=== PATIENT | female | born 1955 | race American Indian/Alaskan Native ===

== ENCOUNTER 2017-07-14 19:51 | Emergency (ER) | payer SELFPAY ==
[2017-07-14 20:40] LABS: Basophils % (Auto) 1.4 % (0.0-1.8); Eosinophils % (Auto) 1.5 % (0.0-4.3); Hematocrit 38.7 % (30.3-42.9); Hemoglobin 12.6 gm/dl (10.1-14.3); Mean Corpuscular HGB Conc 33 % (30-34); Mean Corpuscular Volume 77 fl (79-97); Platelet Count 236 K/mm3 (140-440); Red Cell Distribution Width 15.5 % (13.2-15.2); White Blood Count 8.8 K/mm3 (4.5-11.0)
[2017-07-14 20:45] LABS: Mean Corpuscular Hemoglobin 25 pg (28-32)
[2017-07-14 21:02] LABS: Anion Gap 18 mmol/L; Blood Urea Nitrogen 14 mg/dL (7-17); Calcium 9.1 mg/dL (8.4-10.2); Carbon Dioxide 24 mmol/L (22-30); Chloride 106.5 mmol/L (98-107); Glucose 79 mg/dL (65-100); Potassium 4.5 mmol/L (3.6-5.0); Sodium 144 mmol/L (137-145)
--- NOTE | 2017-07-15 01:22 | Emergency Department Report ---
ED Chest Pain HPI - General Chief Complaint: Chest Pain Stated Complaint: CHEST PAIN Time Seen by Provider: 07/15/17 00:58 Source: patient, old records reviewed Mode of arrival: Ambulatory Limitations: No Limitations - History of Present Illness Initial Comments: 62-year-old female with a past medical history of CAD with stent placement in 2014 and hypertension presents to Hospital complaints of left-sided chest pain since 3 PM. Pain is aching, intermittent, no aggravating or alleviating factors reported last for several minutes at a time. Pain is rated as moderate in intensity. She has been compliant with her medications. Patient has a negative stress test here 01/2016. The patient now lives in [place] and is here because of hurrican [place]. She traveled here 2 days ago. No complaints of calf tenderness, leg edema, leg asymmetry, pleuritic chest pain, shortness of breath, nausea, vomiting, or diaphoresis. With her previous PR 2014 she reported her main symptom as back pain. Patient is here with her mother who is also a patient and signed in to be evaluated as well - Related Data Home Medications Medication Instructions Recorded Confirmed Last Taken Lisinopril [Zestril TAB] 40 mg PO QDAY 07/14/17 07/14/17 07/14/17 Allergies Allergy/AdvReac Type Severity Reaction Status Date / Time No Known Allergies Allergy Verified 01/10/16 23:32 Heart Score - HEART Score History: Slightly suspicious EKG: Normal Age: 45-65 Risk factors: > 3 risk factors or hx of atherosclerotic disease Troponin: < normal limit HEART Score: 3 ED Review of Systems ROS: Stated complaint: CHEST PAIN Other details as noted in HPI Comment: All other systems reviewed and negative Other: Constitutional: No fevers chills Eyes: No eye pain visual changes ENT: No ear pain or throat pain Neck: Denies pain Respiratory: Denies cough wheezing shortness of breath Cardiovascular: Denies palpitations, syncope GI: Denies abdominal pain, nausea, vomiting, diarrhea : Denies dysuria, urinary frequency, or urgency Musculoskeletal: Denies back pain, joint swelling Skin: Denies rash, lesions, erythema Neurologic: Denies headache, numbness, weakness Psychiatric: Denies suicidal ideation, hallucinations ED Past Medical Hx - Past Medical History Previous Medical History?: Yes Hx Hypertension: Yes Hx Heart Attack/AMI: Yes (2014) - Surgical History Past Surgical History?: Yes Additional Surgical History: cardiac stent - Social History Smoking Status: Never Smoker Substance Use Type: Prescribed - Medications Home Medications: Home Medications Medication Instructions Recorded Confirmed Last Taken Type Lisinopril [Zestril TAB] 40 mg PO QDAY 07/14/17 07/14/17 07/14/17 History ED Physical Exam - General Limitations: No Limitations - Other Other exam information: General: No limitations, patient is alert in no acute distress Head exam: Atraumatic, normocephalic Eyes exam: Normal appearance ENT: Moist mucous membrane, normal oropharynx Neck exam: Normal inspection, full range of motion, no meningismus nontender Respiratory exam: Clear to auscultation bilateral, no wheezes, rales, crackles Cardiovascular: Normal rate and rhythm, normal heart sounds. Chest wall nontender Abdomen: Soft, nondistended, and nontender, with normal bowel sounds, no rebound, or guarding Extremity: Full range of motion normal inspection no deformity, no calf tenderness or edema Back: Normal Inspection, full range of motion, no tenderness Neurologic: Alert, oriented x3, cranial nerves intact, no motor or sensory deficit Psychiatric: normal affect, normal mood Skin: Warm, dry, intact ED Course Vital Signs 07/14/17 07/15/17 07/15/17 20:00 00:42 00:45 Temperature 98.5 F Pulse Rate 72 64 Respiratory 18 12 11 L Rate Blood Pressure 162/93 133/67 O2 Sat by Pulse 100 99 Oximetry 07/15/17 07/15/17 07/15/17 01:01 01:15 01:31 Temperature Pulse Rate 65 67 57 L Respiratory 18 20 19 Rate Blood Pressure 122/77 122/77 170/83 O2 Sat by Pulse 99 100 100 Oximetry - Reevaluation(s) Reevaluation #1: 07/15/17 01:23 Patient informed that I plan to admit her to the hospital. She states she cannot stay because her and her family are currently into her car and she has a teenager in a younger child in the car currently waiting for her to be discharged. Her mother who is also a patient that I am seeing will be discharged as well. JUSTIN score - Justin Score Age > 65: (0) No Aspirin use within the Past 7 Days: (1) Yes 3 or more CAD Risk Factors: (1) Yes 2 or more Angina events in past 24 hrs: (1) Yes Known CAD with more than 50% Stenosis: (0) No (hx in past) Elevated Cardiac Markers: (0) No ST Deviation Greater than 0.5mm: (0) No JUSTIN Score: 3 ED Medical Decision Making - Lab Data Result diagrams: 07/14/17 20:14 07/14/17 20:14 Lab Results 07/14/17 07/14/17 07/14/17 Range/Units 20:14 20:14 23:48 WBC 8.8 (4.5-11.0) K/mm3 RBC 5.00 (3.65-5.03) M/mm3 Hgb 12.6 (10.1-14.3) gm/dl Hct 38.7 (30.3-42.9) % MCV 77 L (79-97) fl MCH 25 L (28-32) pg MCHC 33 (30-34) % RDW 15.5 H (13.2-15.2) % Plt Count 236 (140-440) K/mm3 Lymph % (Auto) 37.7 H (13.4-35.0) % [place] % (Auto) 8.6 H (0.0-7.3) % Eos % (Auto) 1.5 (0.0-4.3) % Baso % (Auto) 1.4 (0.0-1.8) % Lymph # 3.3 (1.2-5.4) K/mm3 [place] # 0.8 (0.0-0.8) K/mm3 Eos # 0.1 (0.0-0.4) K/mm3 Baso # 0.1 (0.0-0.1) K/mm3 Seg Neutrophils % 50.8 (40.0-70.0) % Seg Neutrophils # 4.4 (1.8-7.7) K/mm3 Sodium 144 (137-145) mmol/L Potassium 4.5 (3.6-5.0) mmol/L Chloride 106.5 (98-107) mmol/L Carbon Dioxide 24 (22-30) mmol/L Anion Gap 18 mmol/L BUN 14 (7-17) mg/dL Creatinine 0.8 (0.7-1.2) mg/dL Estimated GFR > 60 ml/min BUN/Creatinine Ratio 17.50 % Glucose 79 (65-100) mg/dL Calcium 9.1 (8.4-10.2) mg/dL Troponin T < 0.010 < 0.010 (0.00-0.029) ng/mL - EKG Data -: EKG Interpreted by Me (nsra rate 78, premature atrial complexes, no stemi) - EKG Data When compared to previous EKG there are: no significant change (04/11/16) - Medical Decision Making Patient had any symptoms of PE or DVT. Cardiac enzymes negative 2. EKG without signs of STEMI or ischemia. Admission recommended based on patient's significant cardiac history. Patient states she cannot stay and will sign out AMA. - Differential Diagnosis atypical chest pain, costochondritis, PR, PE Critical Care Time: No Critical care attestation.: If time is entered above; I have spent that time in minutes in the direct care of this critically ill patient, excluding procedure time. ED Disposition Clinical Impression: Chest pain, Hx of heart artery stent Disposition: OP ADMIT IP TO THIS HOSP Is pt being admited?: No Does the pt Need Aspirin: No Condition: Stable Instructions: Chest Pain (ED) Additional Instructions: You are signing out AGAINST MEDICAL ADVICE since admission was recommended giving your history of significant cardiac disease and stent. Follow with your primary care doctor and/or business objects architect within next 2- 3 days. Return if symptoms worsen. Referrals: BARI CHRISTINA MD [Staff Physician] - 2-3 Days (cardiology ) [facility] [Provider Group] - 2-3 Days [facility], [Primary Care Provider] - 3-5 Days Forms: AMA Form Time of Disposition: 01:46
[2017-07-15 02:17] VITALS: BP 160/82
== END 2017-07-15 02:17 | disposition admitted as inpatient to this hospital (09) ==
LOC: ED 19:51
DX: R07.89 Other chest pain (principal); I10 Essential (primary) hypertension; I25.2 Old myocardial infarction; Z98.890 Other specified postprocedural states
CPT/HCPCS: 36415; 80048; 84484; 85025; 93005; 93010; 99284

== ENCOUNTER 2017-07-16 10:20 | Inpatient (IN) | payer OTHER ==
--- NOTE | 2017-07-16 11:31 | Emergency Department Report ---
ED Chest Pain HPI - General Chief Complaint: Chest Pain Stated Complaint: CHEST PAIN Time Seen by Provider: 07/16/17 11:20 Source: patient Mode of arrival: Ambulatory Limitations: No Limitations - History of Present Illness Initial Comments: 62 years old female history of coronary artery disease had a stent in 2014 scalpel was left sided chest pain and pressure in nature admitted to the left shoulder onto the neck. Patient denied any nausea or vomiting no shortness of breath no cough MD Complaint: chest pain -: Last night Onset: during rest Pain Location: left chest Pain Radiation: LUE, back, neck Severity scale (0 -10): 7 Quality: tightness re: denies: nausea, vomting Treatments Prior to Arrival: none - Related Data Home Medications Medication Instructions Recorded Confirmed Last Taken Lisinopril [Zestril TAB] 40 mg PO QDAY 07/14/17 07/14/17 07/14/17 Allergies Allergy/AdvReac Type Severity Reaction Status Date / Time No Known Allergies Allergy Verified 01/10/16 23:32 Heart Score - HEART Score History: Moderately suspicious EKG: Non-specific Age: 45-65 Risk factors: > 3 risk factors or hx of atherosclerotic disease Troponin: < normal limit HEART Score: 5 - Critical Actions Critical Actions: 4-6 pts:12-16.6% risk of adverse cardiac event. Should be admitted ED Review of Systems ROS: Stated complaint: CHEST PAIN Other details as noted in HPI Comment: All other systems reviewed and negative Constitutional: denies: chills, fever Respiratory: denies: cough, orthopnea, shortness of breath, SOB with exertion Cardiovascular: chest pain. denies: palpitations Endocrine: denies: intolerance to cold Gastrointestinal: denies: abdominal pain, nausea, vomiting, diarrhea Neurological: denies: headache, weakness ED Past Medical Hx - Past Medical History Hx Hypertension: Yes Hx Heart Attack/AMI: Yes (2014 11 cardiac stent) - Surgical History Additional Surgical History: cardiac stent, tubal ligation - Social History Smoking Status: Never Smoker Substance Use Type: None - Medications Home Medications: Home Medications Medication Instructions Recorded Confirmed Last Taken Type Lisinopril [Zestril TAB] 40 mg PO QDAY 07/14/17 07/14/17 07/14/17 History ED Physical Exam - General Limitations: No Limitations General appearance: alert, in no apparent distress - Head Head exam: Present: atraumatic - Eye Eye exam: Present: normal appearance - ENT ENT exam: Present: normal exam - Neck Neck exam: Present: normal inspection - Respiratory Respiratory exam: Present: normal lung sounds bilaterally. Absent: wheezes, rales, rhonchi, stridor, chest wall tenderness, accessory muscle use, decreased breath sounds, prolonged expiratory - Cardiovascular Cardiovascular Exam: Present: regular rate, normal rhythm, normal heart sounds - GI/Abdominal GI/Abdominal exam: Present: soft, normal bowel sounds. Absent: distended, tenderness, guarding, rebound, rigid, mass, bruit, pulsatile mass - Extremities Exam Extremities exam: Present: normal inspection - Back Exam Back exam: Present: normal inspection. Absent: CVA tenderness (R), CVA tenderness (L), muscle spasm - Neurological Exam Neurological exam: Present: alert, oriented X3, CN II-XII intact, normal gait - Skin Skin exam: Present: warm, normal color ED Course Vital Signs 07/16/17 07/16/17 10:53 11:33 Temperature 97.7 F 98.1 F Pulse Rate 91 H 70 Respiratory 18 20 Rate Blood Pressure 180/85 Blood Pressure 164/73 [Left] O2 Sat by Pulse 100 99 Oximetry - Reevaluation(s) Reevaluation #1: 07/16/17 12:[address] Morrissey present the patient to him, he agreed to admit the patient to his service. JUSTIN score - Justin Score Age > 65: (0) No Aspirin use within the Past 7 Days: (1) Yes 3 or more CAD Risk Factors: (1) Yes 2 or more Angina events in past 24 hrs: (1) Yes Known CAD with more than 50% Stenosis: (0) No (hx in past) Elevated Cardiac Markers: (0) No ST Deviation Greater than 0.5mm: (0) No JUSTIN Score: 3 ED Medical Decision Making - Lab Data Result diagrams: 07/16/17 11:08 07/16/17 11:08 Critical care attestation.: If time is entered above; I have spent that time in minutes in the direct care of this critically ill patient, excluding procedure time. ED Disposition Clinical Impression: Chest pain, Coronary artery disease Disposition: OP ADMIT IP TO THIS HOSP Is pt being admited?: Yes Does the pt Need Aspirin: Yes (given) Condition: Stable Instructions: Chest Pain (ED) Referrals: PRIMARY CARE,MD [Primary Care Provider] - 3-5 Days
[2017-07-16 11:34] LABS: Basophils % (Auto) 0.9 % (0.0-1.8); Hematocrit 39.2 % (30.3-42.9); Hemoglobin 12.2 gm/dl (10.1-14.3); Mean Corpuscular HGB Conc 31 % (30-34); Mean Corpuscular Volume 79 fl (79-97); Platelet Count 216 K/mm3 (140-440); Red Blood Count 4.99 M/mm3 (3.65-5.03); Red Cell Distribution Width 15.6 % (13.2-15.2); White Blood Count 6.9 K/mm3 (4.5-11.0)
[2017-07-16 11:38] LABS: Mean Corpuscular Hemoglobin 25 pg (28-32)
[2017-07-16 11:40] LABS: Anion Gap 17 mmol/L; Blood Urea Nitrogen 14 mg/dL (7-17); Calcium 9.1 mg/dL (8.4-10.2); Carbon Dioxide 25 mmol/L (22-30); Chloride 105.5 mmol/L (98-107); Glucose 105 mg/dL (65-100); Potassium 4.2 mmol/L (3.6-5.0); Sodium 143 mmol/L (137-145)
--- NOTE | 2017-07-16 11:47 | XRay Report ---
Single view chest: Compared to 04/11/16. History: Chest pain. Findings: Cardiomegaly. Trachea midline. Mild pulmonary venous congestion. No consolidation or pleural effusion. Impression: Cardiomegaly with mild pulmonary venous congestion.
[2017-07-16] MEDS ORDERED: BABY ASPIRIN PO ONE (12:27)
--- NOTE | 2017-07-16 20:15 | History and Physical Report ---
History of Present Illness Date of examination: 07/16/17 Date of admission: 07/16/17 12:28 Chief complaint: Chesrt pain for 1 day History of present illness: History of Present Illness 62 years old female history of coronary artery disease had a stent in 2014 scalpel was left sided chest pain and pressure in nature admitted to the left shoulder onto the neck. Patient denied any nausea or vomiting no shortness of breath no cough MD Complaint: chest pain -: Last night Onset: during rest Pain Location: left chest Pain Radiation: LUE, back, neck Severity scale (0 -10): 7 Quality: tightness re: denies: nausea, vomting Treatments Prior to Arrival: none - Related Data Home Medications Medication Instructions Recorded Confirmed Last Taken Lisinopril [Zestril TAB] 40 mg PO QDAY 07/14/17 07/14/17 07/14/17 Allergies Allergy/AdvReac Type Severity Reaction Status Date / Time No Known Allergies Allergy Verified 01/10/16 23:32 - HEART Score History: Moderately suspicious EKG: Non-specific Age: 45-65 Risk factors: > 3 risk factors or hx of atherosclerotic disease Troponin: < normal limit HEART Score: 5 - Critical Actions Critical Actions: 4-6 pts:12-16.6% risk of adverse cardiac event. Should be admitted Review of Systems Stated complaint: CHEST PAIN Other details as noted in HPI Comment: All other systems reviewed and negative Constitutional: denies: chills, fever Respiratory: denies: cough, orthopnea, shortness of breath, SOB with exertion Cardiovascular: chest pain. denies: palpitations Endocrine: denies: intolerance to cold Gastrointestinal: denies: abdominal pain, nausea, vomiting, diarrhea Neurological: denies: headache, weakn - Past Medical History Hx Hypertension: Yes Hx Heart Attack/AMI: Yes (2014 11 cardiac stent) - Surgical History Additional Surgical History: cardiac stent, tubal ligation - Social History Smoking Status: Never Smoker Substance Use Type: None - Medications Home Medications: Home Medications Medication Instructions Recorded Confirmed Last Taken Type Lisinopril [Zestril TAB] 40 mg PO QDAY 07/14/17 07/14/17 07/14/17 History Medications and Allergies Allergies Allergy/AdvReac Type Severity Reaction Status Date / Time No Known Allergies Allergy Verified 01/10/16 23:32 Home Medications Medication Instructions Recorded Confirmed Last Taken Type Lisinopril [Zestril TAB] 40 mg PO QDAY 07/14/17 07/17/17 07/16/17 10:00 History Exam - Constitutional Vitals: Temp Pulse Resp BP Pulse Ox 98.2 F 98 H 20 165/78 98 07/16/17 16:18 07/16/17 16:50 07/16/17 16:50 07/16/17 16:18 07/16/17 16:50 General appearance: Present: no acute distress, well-nourished - EENT Eyes: Present: PERRL ENT: hearing intact, clear oral mucosa - Neck Neck: Present: supple, normal ROM - Respiratory Respiratory effort: normal Respiratory: bilateral: CTA - Cardiovascular Heart rate: 80 Rhythm: regular Heart Sounds: Present: S1 & S2. Absent: rub, click - Extremities Extremities: no ischemia, pulses intact, pulses symmetrical, No edema Peripheral Pulses: within normal limits - Abdominal General gastrointestinal: Present: soft, non-tender, non-distended, normal bowel sounds Female genitourinary: Present: normal - Integumentary Integumentary: Present: clear, warm, dry - Musculoskeletal Musculoskeletal: gait normal, strength equal bilaterally - Psychiatric Psychiatric: appropriate mood/affect, intact judgment & insight - Neurologic Neurologic: CNII-XII intact, moves all extremities - Allied Health Allied health notes reviewed: nursing, case management Results - Labs CBC & Chem 7: 07/17/17 05:29 07/17/17 05:29 Labs: Laboratory Last Values WBC 6.9 K/mm3 (4.5-11.0) 07/16/17 11:08 RBC 4.99 M/mm3 (3.65-5.03) 07/16/17 11:08 Hgb 12.2 gm/dl (10.1-14.3) 07/16/17 11:08 Hct 39.2 % (30.3-42.9) 07/16/17 11:08 MCV 79 fl (79-97) 07/16/17 11:08 MCH 25 pg (28-32) L 07/16/17 11:08 MCHC 31 % (30-34) 07/16/17 11:08 RDW 15.6 % (13.2-15.2) H 07/16/17 11:08 Plt Count 216 K/mm3 (140-440) 07/16/17 11:08 Lymph % (Auto) 35.0 % (13.4-35.0) 07/16/17 11:08 [place] % (Auto) 8.0 % (0.0-7.3) H 07/16/17 11:08 Eos % (Auto) 2.0 % (0.0-4.3) 07/16/17 11:08 Baso % (Auto) 0.9 % (0.0-1.8) 07/16/17 11:08 Lymph # 2.4 K/mm3 (1.2-5.4) 07/16/17 11:08 [place] # 0.6 K/mm3 (0.0-0.8) 07/16/17 11:08 Eos # 0.1 K/mm3 (0.0-0.4) 07/16/17 11:08 Baso # 0.1 K/mm3 (0.0-0.1) 07/16/17 11:08 Seg Neutrophils % 54.1 % (40.0-70.0) 07/16/17 11:08 Seg Neutrophils # 3.7 K/mm3 (1.8-7.7) 07/16/17 11:08 D-Dimer 254.49 ng/mlDDU (0-234) H 07/16/17 11:39 Sodium 143 mmol/L (137-145) 07/16/17 11:08 Potassium 4.2 mmol/L (3.6-5.0) 07/16/17 11:08 Chloride 105.5 mmol/L (98-107) 07/16/17 11:08 Carbon Dioxide 25 mmol/L (22-30) 07/16/17 11:08 Anion Gap 17 mmol/L 07/16/17 11:08 BUN 14 mg/dL (7-17) 07/16/17 11:08 Creatinine 0.7 mg/dL (0.7-1.2) 07/16/17 11:08 Estimated GFR > 60 ml/min 07/16/17 11:08 BUN/Creatinine Ratio 20.00 % 07/16/17 11:08 Glucose 105 mg/dL (65-100) H 07/16/17 11:08 Calcium 9.1 mg/dL (8.4-10.2) 07/16/17 11:08 Troponin T < 0.010 ng/mL (0.00-0.029) 07/16/17 16:40 NT-Pro-B Natriuret Pep 163.7 pg/mL (0-900) 07/16/17 11:39 Lipase 45 units/L (13-60) 07/16/17 11:39 Cardiac Enzymes 07/17/17 Range/Units 08:23 Total Creatine Kinase 182 H (30-135) units/L CK-MB (CK-2) 2.3 (0.0-4.0) ng/mL Troponin T < 0.010 (0.00-0.029) ng/mL - Imaging and Cardiology EKG: report reviewed (NSR non specific ST t wave changes) Assessment and Plan Advance Directives: Yes (Full code) VTE prophylaxis?: Chemical Plan of care discussed with patient/family: Yes - Patient Problems (1) Chest pain Current Visit: No Status: Acute Qualifiers: Chest pain type: C Ischemic chest pain type: I Plan to address problem: Serial CE's and Lexiscan in Am (2) Coronary artery disease Current Visit: Yes Status: Chronic Qualifiers: Coronary Disease-Associated Artery/Lesion type: C [place] vs. transplanted heart: N Associated angina: A Plan to address problem: For stress in AM Serial cardiac enzymes ASA 81 mg 2 qd (3) Hypertension Current Visit: No Status: Chronic Qualifiers: Hypertension type: essential hypertension Qualified Code(s): I10 - Essential (primary) hypertension Plan to address problem: cont Lisinopril 40 mg po qd (4) DVT prophylaxis Current Visit: Yes Status: Acute Plan to address problem: on lovenox
[2017-07-16] MEDS ORDERED: MILK OF MAGNESIA PO PRN (20:16)
[2017-07-16] MEDS ORDERED: AMBIEN PO PRN (20:16)
[2017-07-16] MEDS ORDERED: PERCOCET 5/325 PO PRN (20:16)
[2017-07-16] MEDS ORDERED: ZOFRAN IV PRN (20:16)
[2017-07-16] MEDS ORDERED: DULCOLAX PR PRN (20:16)
[2017-07-16] MEDS ORDERED: DILAUDID IV PRN (20:16)
[2017-07-16 21:16] LABS: Creatine Kinase MB 2.5 ng/mL (0.0-4.0)
[2017-07-16 21:17] LABS: Creatine Kinase 198 units/L (30-135)
[2017-07-16] MEDS: ZESTRIL PO SCH (21:30)
[2017-07-16] MEDS: PEPCID PO SCH (21:31)
--- NOTE | 2017-07-17 03:08 | Admit Criteria Form ---
Admission Criteria Documentation: CARDIOLOGY GRG Clinical Indications for Admission to Inpatient Care ([place]/check or initial the applicable condition/criteria) Hospital admission is needed for appropriate care of the patient because of ANY ONE of the following: [ ] I. Hemodynamic instability as indicated by ALL of the following (1)(2)(3) (4)(5)(6)(7)(8)(9)(10) [ ]a) Vital sign abnormality not readily corrected by appropriate treatment with 12-24 hours for ANY ONE: [ ]i) Hypotension that persists despite appropriate treatment (eg, volume repletion) [ ]ii) Tachycardiathat persists despite appropriate tx ( e.g., analgesia, fluids, sedation as indicated [ ]iii) Orthostatic vital sign changes that persists despite appropriate treatment (eg, volume repletion) [ ]b) Vital sign abnormailty that is severe indicated by ANY ONE of the following: [ ]i) Inadequate perfusion indicated by ANY ONE of the following: [ ] 1) Lactic acidosis (> 2 mmol/L) [ ] 2) New abnormal capillary refill (> 3 seconds) [ ] 3) Reduced urine output [ ] 4) New altered mental status [ ] 5) Myocardial Ischemia [ ] 6) Other metabolic acidosis (arterial pH <7.35 ) not otherwise explained. [ ]ii) Mean arterial pressure[A] less than 60 mm Hg [ ]iii) Mean arterial pressure[A] less than 70 mm Hg after 30 minutes of appropriate treatment (eg, fluid resuscitation) [ ]iv) Sustained heart rate greater than 120 beats per minute in adult or child 6 years or older[B] [ ]v) IV inotropic or vasopressor medication required to maintain adequate blood pressure or perfusion [ ] II. Severe heart failure as indicated by ANY ONE of the following(17)(18) [ ]a) Respiratory distress [ ]b) Hypotension [ ]c) Debilitating anasarca refractory to therapy (eg, tissue breakdown with infection)[C](19) [ ]d) Cardiac arrhythmias of immediate concern [ ]e) Myocardial ischemia [ ] III. Cardiac arrhythmias or findings of immediate concern indicated by ANY ONE of the following (21)(22): [ ] a) Heart rhythms that are inherently dangerous or unstable indicated by ANY ONE of the following (23)(24)(25): [ ] i) Resuscitated ventricular fibrillation or cardiac arrest [ ] ii) Ventricular escape rhythm [ ] iii) Sustained ventricular tachycardia (30 seconds or more of ventricular rhythm at greater than 100 beats per minute) [ ] iv) Nonsustained ventricular tachycardia and ANY ONE of the following: [ ] 1) Suspected cardiac ischemia as cause or consequence of ventricular tachycardia [ ] 2) Acute myocarditis [ ] b) Unstable cardiac conduction defects indicated by ANY ONE of the following(25)(26)(27) [ ] i) Type II second-degree atrioventricular block [ ]ii) Third-degree atrioventricular block [ ]iii) New-onset left bundle branch block with suspected myocardial ischemia [ ]c) Any heart rhythm and ANY ONE of the following (23)(24)(28)(29) (30) [ ] i) Continuous long-term ECG monitoring needed (e.g., initiation of drug requiring monitoring for more than 24 hours) [ ] ii) Patient has automatic implanted cardioverter defibrillator that is repeatedly firing, malfunctioning, or in need of immediate adjustment of settings beyond the scope of ambulatory or observation care [ ]d) Heart rhythms of concern due to ANY ONE of the following: [ ] i) Hypotension [ ] ii) Respiratory distress [ ] iii) Association with other significant symptoms (e.g., bradycardia with syncope or ongoing dizziness, supraventricular tachycardia with chest pain (28)(29)(31) [ ] IV. Monitoring for cardiac contusion beyond the scope of observation care needed [A](32)(33)(34) [ ] V. Surgical or device complication (e.g., valve replacement complication , ICD disfunction or pacemaker dysfunction) (49)(50)(51)(52)(53)(54) [ ] . Inpatient palliative care needed. [F](51)(52) Also use Inpatient Palliative Care Criteria [ ] VII. Nonbacterial thrombotic (marantic) endocarditis(43)(44)(55)(56)(57) [X] VIII. Cardiology condition, symptom, or finding for which emergency and observation care has failed or are not considered appropriate. [ ] IX. Acute valvular disease requiring inpatient as indicated by ANY ONE of the following (40)(41) [ ]a) Acute valvular regurgitation (42) [ ]b) Noninfectious valvulitis (43)(44) [ ]c) Obstructive valve thrombosis (45)(46) [ ]d) Paravalvular leak(47)(48) [ ]e) Other significant valvular disorder remaining after emergency or observation level of care (as appropriate) [ ]X. Pericardial disease requiring inpatient treatment as indicated by ANY ONE of the following (35)(36)(37)(38) [ ]a) Suspected tamponade [ ]b) Hemopericardium [ ]c) Other significant pericardial disorder remaining after emergency or observation level of care (as appropriate)(39) [ ] XI. Cardiac ischemia beyond scope of emergency and observation care. [ ] XII. Cyanotic heart disease requiring inpatient care as indicated by 1 or more of the following(58)(59)(60): [ ]a) Acute onset of hypoxemia [ ]b) Exacerbation [ ] XIII. Hypertension requiring inpatient treatment as indicated by ANYONE of the following(11)(12)(13)(14): [ ]a) Severe hypertension (SBP greater than 180 mm Hg or DBP greater than 110 mm Hg, or greater than the 95th percentile for age, gender, and height in pediatric patients) that cannot be controlled (eg, to SBP less than 160 mm Hg and DBP less than 100 mm Hg) by emergency department or observation care treatment(15) [ ]b) Acute end organ damage secondary to hypertension (SBP greater than 140 mm Hg or DBP greater than 90 mm Hg) as indicated by ANYONE of the following: [ ] i) Hypertensive encephalopathy (eg, Altered mental status)(16) [ ] ii) Cerebral infarction [ ] iii) Intracranial hemorrhage [ ] iv) Myocardial ischemia or infarction [ ] v) Heart failure (eg, pulmonary edema) [ ] vi) Aortic dissection [ ] vii) Increased creatinine (new) with reduction of more than 50% in estimated glomerular filtration rate from baseline [ ] viii) Papilledema [ ] ix) Retinal hemorrhage [ ] x) Microangiopathic hemolytic anemia [ ] xi) Seizure [ ] xii) Other significant finding secondary to hypertension [ ] XIV. Complications of transplanted heart indicated by ANY ONE of the following(61): [ ]a) Acute graft rejection requiring inpatient management (eg, intravenous imunosuppression)(62)(63) [ ]b) Acute graft heart failure indicated by ANY ONE of the following(64): [ ] i) Hemodynamic instability [ ] ii) Cardiac arrhythmias of immediate concern [ ] iii) Pulmonary edema that is very severe (eg, mechanical ventilation needed, imminent or likely, need for 100% oxygen to keep oxygen saturation above 90%) [ ] iv) Pulmonary edema that is persistent as indicated by ALL of the following: [ ] 1) New need for oxygen therapy to keep oxygen saturation above 90 % (or increased FiO2 need from baseline) [ ] 2) Has not improved sufficiently with emergency department or observation care IV diuretics or other heart failure treatments[E]. [ ] iv) Altered mental status that is severe or persistent [ ] iv) Increased creatinine (new on laboratory test) with reduction of more than 50% in estimated glomerular filtration rate from baseline [ ] iv) Progressively (ongoing) rising creatinine (known from past laboratory test) with reduction of more than 25% in estimated glomerular filtration rate from baseline [ ] iv) Acute renal failure [ ] iv) Acute peripheral ischemia (eg, examination shows pulseless, cool, mottled, or cyanotic extremity) [ ] iv) Pulmonary artery catheter monitoring needed [ ] iv) Other sign or symptom of heart failure requiring inpatient treatment (ie, too severe or not responsive to outpatient and observation care treatment) [ ]c) Infection requiring inpatient management (eg, Hemodynamic instability, need for intravenous antimicrobial treatment)(66)(67)(68)(69)(70) [ ]d) Cardiac allograft vasculopathy requiring inpatient management (eg evidence of cardiacischemia)(71) [ ]e) Other complication of transplanted heart (eg, stroke, severe pulmonary hypertension, severe valvular dysfunction) requiring inpatient management(72) The original [employer] content created by [employer] has been revised. The portions of the content which have been revised are identified through the use of italic text or in bold, and [facility] has neither reviewed nor approved the modified material. All other unmodified content is copyright [employer]. Please see references footnoted in the original [employer] edition 2017 Admission Criteria Met: Yes
[2017-07-17 06:04] LABS: Basophils % (Auto) 0.5 % (0.0-1.8); Eosinophils % (Auto) 3.4 % (0.0-4.3); Hematocrit 35.6 % (30.3-42.9); Hemoglobin 11.6 gm/dl (10.1-14.3); Mean Corpuscular HGB Conc 33 % (30-34); Mean Corpuscular Volume 78 fl (79-97); Red Blood Count 4.56 M/mm3 (3.65-5.03); Red Cell Distribution Width 15.5 % (13.2-15.2); White Blood Count 5.5 K/mm3 (4.5-11.0)
[2017-07-17 06:09] LABS: Mean Corpuscular Hemoglobin 26 pg (28-32)
[2017-07-17 06:12] LABS: Platelet Count 204 K/mm3 (140-440)
[2017-07-17 06:23] LABS: Creatine Kinase MB 2.3 ng/mL (0.0-4.0)
[2017-07-17 06:26] LABS: Creatine Kinase 181 units/L (30-135)
[2017-07-17 06:27] LABS: Alanine Aminotransferase 23 units/L (7-56); Albumin 2.6 g/dL (3.9-5); Albumin/Globulin Ratio 0.6 %; Alkaline Phosphatase 114 units/L (35-129); Anion Gap 15 mmol/L; BUN/Creatinine Ratio 18.33; Blood Urea Nitrogen 11 mg/dL (7-17); Calcium 8.7 mg/dL (8.4-10.2); Carbon Dioxide 26 mmol/L (22-30); Chloride 106.6 mmol/L (98-107); Glucose 95 mg/dL (65-100); Potassium 4.3 mmol/L (3.6-5.0); Sodium 143 mmol/L (137-145)
[2017-07-17 08:58] LABS: Creatine Kinase MB 2.3 ng/mL (0.0-4.0)
[2017-07-17 09:01] LABS: Creatine Kinase 182 units/L (30-135)
[2017-07-17] MEDS ORDERED: LEXISCAN IV ONE ×2 (11:35→11:42)
[2017-07-17] MEDS: ZESTRIL PO SCH (20:28)
[2017-07-17] MEDS: PEPCID PO SCH (20:28)
--- NOTE | 2017-07-17 23:32 | Progress Note ---
Assessment and Plan - Patient Problems (1) Chest pain Current Visit: No Status: Acute Qualifiers: Chest pain type: C Ischemic chest pain type: I Plan to address problem: Lexiscan done-result pending (2) Coronary artery disease Current Visit: Yes Status: Chronic Qualifiers: Coronary Disease-Associated Artery/Lesion type: C [place] vs. transplanted heart: N Associated angina: A Plan to address problem: ASA 81 mg 2 qd (3) Hypertension Current Visit: No Status: Chronic Qualifiers: Hypertension type: essential hypertension Qualified Code(s): I10 - Essential (primary) hypertension Plan to address problem: cont Lisinopril 40 mg po qd (4) DVT prophylaxis Current Visit: Yes Status: Acute Plan to address problem: on lovenox Subjective Date of service: 07/17/17 Principal diagnosis: Chest pain Interval history: No chest pain Had stress test this am-result pending Objective - Constitutional General appearance: Present: no acute distress, well-nourished - EENT Eyes: PERRL, EOM intact ENT: hearing intact, clear oral mucosa Ears: bilateral: normal - Neck Neck: supple, normal ROM - Respiratory Respiratory effort: normal Respiratory: bilateral: CTA - Breasts Breasts: normal - Cardiovascular Rhythm: regular Heart Sounds: Present: S1 & S2. Absent: gallop, rub Extremities: pulses intact, No edema, normal color, Full ROM - Gastrointestinal General gastrointestinal: Present: soft, non-tender, non-distended, normal bowel sounds - Genitourinary Female genitourinary: normal - Integumentary Integumentary: clear, warm, dry - Musculoskeletal Musculoskeletal: 1, strength equal bilaterally - Neurologic Neurologic: moves all extremities - Psychiatric Psychiatric: memory intact, appropriate mood/affect, intact judgment & insight - Labs CBC & Chem 7: 07/17/17 05:29 07/17/17 05:29 Labs: Abnormal lab results 07/17/17 07/17/17 07/17/17 Range/Units 05:29 05:29 05:29 MCV 78 L (79-97) fl MCH 26 L (28-32) pg RDW 15.5 H (13.2-15.2) % Lymph % (Auto) 47.5 H (13.4-35.0) % [place] % (Auto) 8.8 H (0.0-7.3) % Seg Neutrophils % 39.8 L (40.0-70.0) % Creatinine 0.6 L (0.7-1.2) mg/dL Total Creatine Kinase 181 H (30-135) units/L Albumin 2.6 L (3.9-5) g/dL 07/17/17 Range/Units 08:23 MCV (79-97) fl MCH (28-32) pg RDW (13.2-15.2) % Lymph % (Auto) (13.4-35.0) % [place] % (Auto) (0.0-7.3) % Seg Neutrophils % (40.0-70.0) % Creatinine (0.7-1.2) mg/dL Total Creatine Kinase 182 H (30-135) units/L Albumin (3.9-5) g/dL
[2017-07-18] MEDS: PEPCID PO SCH ×3 (00:37→21:44)
--- NOTE | 2017-07-18 03:42 | Treadmill Report ---
THALLIUM STRESS TEST LEFT VENTRICLE: Left ventricular chamber size is within normal spread. Perfusion study demonstrates a small fixed inferoapical defect, no reversibility in the resting study. The defect is of moderate intensity. Gated analysis demonstrates normal left ventricular systolic function, ejection fraction of 72%. CONCLUSION: Small fixed inferoapical defect consistent with breast attenuation artifact. No reversible ischemia is demonstrated on this study. Suboptimal study. Clinical correlation is recommended. JOB# [id number] CA/NTS
[2017-07-18] MEDS: ZESTRIL PO SCH (10:14)
[2017-07-18] MEDS: TYLENOL PO PRN ×2 (10:15→21:41)
[2017-07-18] MEDS ORDERED: BABY ASPIRIN PO SCH (18:00)
--- NOTE | 2017-07-18 20:22 | Progress Note ---
Assessment and Plan Assessment and plan: - Patient Problems (1) Chest pain Current Visit: No Status: Acute Qualifiers: Chest pain type: C Ischemic chest pain type: I Plan to address problem: Lexiscan done-result pending (2) Coronary artery disease Current Visit: Yes Status: Chronic Qualifiers: Coronary Disease-Associated Artery/Lesion type: C [place] vs. transplanted heart: N Associated angina: A Plan to address problem: ASA 81 mg 2 qd (3) Hypertension Current Visit: No Status: Chronic Qualifiers: Hypertension type: essential hypertension Qualified Code(s): I10 - Essential (primary) hypertension Plan to address problem: cont Lisinopril 40 mg po qd (4) DVT prophylaxis Current Visit: Yes Status: Acute Plan to address problem: on lovenox Hospitalist Physical - Constitutional Vitals: Temp Pulse Resp BP Pulse Ox 98.1 F 63 20 164/79 100 07/18/17 03:52 07/18/17 16:58 07/18/17 16:58 07/18/17 16:58 07/18/17 16:58 General appearance: Present: no acute distress, well-nourished Results - Labs CBC & Chem 7: 07/17/17 05:29 07/17/17 05:29 Labs: Laboratory Last Values WBC 5.5 K/mm3 (4.5-11.0) 07/17/17 05:29 RBC 4.56 M/mm3 (3.65-5.03) 07/17/17 05:29 Hgb 11.6 gm/dl (10.1-14.3) 07/17/17 05:29 Hct 35.6 % (30.3-42.9) 07/17/17 05:29 MCV 78 fl (79-97) L 07/17/17 05:29 MCH 26 pg (28-32) L 07/17/17 05:29 MCHC 33 % (30-34) 07/17/17 05:29 RDW 15.5 % (13.2-15.2) H 07/17/17 05:29 Plt Count 204 K/mm3 (140-440) 07/17/17 05:29 Lymph % (Auto) 47.5 % (13.4-35.0) H 07/17/17 05:29 [place] % (Auto) 8.8 % (0.0-7.3) H 07/17/17 05:29 Eos % (Auto) 3.4 % (0.0-4.3) 07/17/17 05:29 Baso % (Auto) 0.5 % (0.0-1.8) 07/17/17 05:29 Lymph # 2.6 K/mm3 (1.2-5.4) 07/17/17 05:29 [place] # 0.5 K/mm3 (0.0-0.8) 07/17/17 05:29 Eos # 0.2 K/mm3 (0.0-0.4) 07/17/17 05:29 Baso # 0.0 K/mm3 (0.0-0.1) 07/17/17 05:29 Seg Neutrophils % 39.8 % (40.0-70.0) L 07/17/17 05:29 Seg Neutrophils # 2.2 K/mm3 (1.8-7.7) 07/17/17 05:29 D-Dimer 254.49 ng/mlDDU (0-234) H 07/16/17 11:39 Sodium 143 mmol/L (137-145) 07/17/17 05:29 Potassium 4.3 mmol/L (3.6-5.0) 07/17/17 05:29 Chloride 106.6 mmol/L (98-107) 07/17/17 05:29 Carbon Dioxide 26 mmol/L (22-30) 07/17/17 05:29 Anion Gap 15 mmol/L 07/17/17 05:29 BUN 11 mg/dL (7-17) 07/17/17 05:29 Creatinine 0.6 mg/dL (0.7-1.2) L 07/17/17 05:29 Estimated GFR > 60 ml/min 07/17/17 05:29 BUN/Creatinine Ratio 18.33 % 07/17/17 05:29 Glucose 95 mg/dL (65-100) 07/17/17 05:29 Calcium 8.7 mg/dL (8.4-10.2) 07/17/17 05:29 Total Bilirubin 0.30 mg/dL (0.1-1.2) 07/17/17 05:29 AST 31 units/L (5-40) 07/17/17 05:29 ALT 23 units/L (7-56) 07/17/17 05:29 Alkaline Phosphatase 114 units/L (35-129) 07/17/17 05:29 Total Creatine Kinase 182 units/L (30-135) H 07/17/17 08:23 CK-MB (CK-2) 2.3 ng/mL (0.0-4.0) 07/17/17 08:23 CK-MB (CK-2) Rel Index 1.2 (0-4) 07/17/17 08:23 Troponin T < 0.010 ng/mL (0.00-0.029) 07/17/17 08:23 NT-Pro-B Natriuret Pep 163.7 pg/mL (0-900) 07/16/17 11:39 Total Protein 7.0 g/dL (6.3-8.2) 07/17/17 05:29 Albumin 2.6 g/dL (3.9-5) L 07/17/17 05:29 Albumin/Globulin Ratio 0.6 % 07/17/17 05:29 Lipase 45 units/L (13-60) 07/16/17 11:39
[2017-07-18] MEDS: LOPRESSOR PO SCH (21:43)
[2017-07-18] MEDS: ALUM-MAG HYDROX-SIMETH 200-200-20MG/5ML PO PRN (22:51)
--- NOTE | 2017-07-19 09:43 | Discharge Summary ---
Providers - Providers Date of Admission: 07/16/17 12:28 Date of discharge: 07/19/17 Attending physician: RASHAD GONZALEZ 07/18/17 16:03 Consult to Dietitian/Nutrition [CONS] Routine Physician Instructions: Reason For Exam: Reason for Consult: Malnutrition Primary care physician: SEO ENGINEER Hospitalization Reason for admission: chest pain Condition: Stable Pertinent studies: CXR Stress test Disposition: CT- TO HOME OR SELFCARE Time spent for discharge: 35 min Core Measure Documentation - Palliative Care Palliative Care/ Comfort Measures: Not Applicable - Core Measures Any of the following diagnoses?: none Exam - Physical Exam Narrative exam: Seen and examined: - Constitutional Vitals: Temp Pulse Resp BP Pulse Ox 97.3 F L 58 L 18 130/69 100 07/19/17 04:30 07/19/17 04:30 07/19/17 04:30 07/19/17 04:30 07/19/17 04:30 General appearance: Present: no acute distress, obese - EENT Eyes: Present: PERRL, EOM intact - Neck Neck: Present: supple. Absent: enlarged thyroid, masses or JVD - Respiratory Respiratory effort: normal Respiratory: bilateral: CTA, negative: rhonchi, wheezing - Cardiovascular Rhythm: regular Heart Sounds: Present: S1 & S2. Absent: systolic murmur - Extremities Extremities: no ischemia - Abdominal General gastrointestinal: Present: soft, non-tender, non-distended, normal bowel sounds - Psychiatric Psychiatric: cooperative - Neurologic Neurologic: CNII-XII intact, no focal deficits Plan Activity: advance as tolerated Diet: low cholesterol, low salt Additional Instructions: Follow-up with your consulting utility forester Follow up with: PRIMARY CARE, [Primary Care Provider] - 3-5 Days Prescriptions: AtorvaSTATin [Lipitor] 40 mg PO QHS #30 tab Antacid [Alum-Mag Hydrox-Simeth [id number]/[id number]] 15 ml PO Q4H PRN #30 oral.liqd PRN Reason: Indigestion Aspirin [Aspirin BABY CHEW TAB] 81 mg PO QDAY #30 tab.chew Famotidine [Pepcid] 20 mg PO BID #60 tablet Lisinopril [Zestril TAB] 40 mg PO QDAY #30 tablet Metoprolol [Lopressor TAB] 12.5 mg PO BID #30 tablet
[2017-07-19 09:50] VITALS: BP 116/62
[2017-07-19] MEDS: LOPRESSOR PO SCH (11:29)
[2017-07-19] MEDS: PEPCID PO SCH (11:29)
[2017-07-19] MEDS: ALUM-MAG HYDROX-SIMETH 200-200-20MG/5ML PO PRN (11:29)
[2017-07-19] MEDS: ZESTRIL PO SCH (11:29)
== END 2017-07-19 12:37 | disposition home or self-care (01) | DRG 313 ==
LOC: ED 10:20 → 4A 12:28
PROVIDERS: ADMIT Internal Medicine; ATTEND Internal Medicine
DX: R07.9 Chest pain, unspecified (principal); I25.10 Atherosclerotic heart disease of native coronary artery without angina pectoris; I10 Essential (primary) hypertension; I25.2 Old myocardial infarction; Z98.51 Tubal ligation status; Z95.5 Presence of coronary angioplasty implant and graft; Z87.891 Personal history of nicotine dependence
CPT/HCPCS: 36415; 71010; 78452; 80048; 80053; 80061; 82550; 82553; 83690; 83880; 84484; 85025; 85379; 93005; 93010; 93017; A9270-GY; A9502; J1170; J2785